=== PATIENT | male | born 1960 | race Caucasian/White ===

== ENCOUNTER 2023-06-22 03:34 | Emergency (ER) | payer OTHER, SELFPAY ==
[2023-06-22] VITALS (7 sets, daily range): BP systolic 146–157; BP diastolic 77–98; BMI 28.1
[2023-06-22 03:54] LABS: % Eosinophils 1.2 % (0-6); % Immature Granulocytes 0.5 % (0-0.5); % Lymphocytes 32.3 % (20.5-51.1); % Monocytes 7.7 % (1.7-9.3); % Neutrophils 57.3 % (42.2-75.2); Absolute Basophils 0.1 10^3/uL (0-0.2); Absolute Eosinophils 0.1 10^3/uL (0-0.7); Absolute Lymphocytes 1.9 10^3/uL (1.2-3.4); Absolute Monocytes 0.5 10^3/uL (0.1-0.6); Absolute Neutrophils 3.4 10^3/uL (1.4-6.5); Hematocrit 46.9 % (39.0-52.0); Mean Corp Hgb Conc. 34.1 g/dL (33.0-37.0); Mean Corpuscular Hgb 31.2 pg (27.0-31.0); Mean Corpuscular Volume 91.4 fL (80.0-94.0); Mean Platelet Volume 9.4 fL (7.4-10.4); Nucleated Red Blood Cells % 0 % (-); Platelet Count 180 10^3/uL (130-400); Red Blood Cell Count 5.13 10^6/uL (4.70-6.10); Red Cell Dist. Width 12.6 % (11.5-14.5); White Blood Cell Count 5.9 10^3/uL (4.8-10.8)
[2023-06-22 04:10] LABS: ALT (SGPT) 74 U/L (0-50); AST (SGOT) 37 U/L (17-59); Alkaline Phosphatase 68 U/L (38-126); Blood Urea Nitrogen 14 mg/dl (9-20); Calcium 9.7 mg/dl (8.4-10.2); Carbon Dioxide 20 mmol/L (22-30); Chloride 112 mmol/L (98-107); Estimated Creatinine Clearance 111 ml/min; Glucose 133 mg/dl (70-99); Potassium 4.1 mmol/L (3.5-5.1); Sodium 143 mmol/L (135-145); Total Bilirubin 0.4 mg/dl (0.2-1.3); Total Protein 8.2 g/dl (6.3-8.2); eGFR > 60.00
[2023-06-22 05:24] LABS: Troponin I < 0.012 ng/ml
--- NOTE | 2023-06-22 06:10 | EDRN ---
Updated patient on blood work and status on physician seeing him, patient remains feeling comfortable and symptom free
--- NOTE | 2023-06-22 06:30 | ED.GENMED ---
History of Present Illness
General
Chief Complaint: Dizziness
Source: patient and spouse
Exam Limitations: none
Time Seen by Provider: 06/22/23 06:04
Travel History
Have you had any contact with someone who has COVID-19?: No
Do you have any symptoms of coronavirus? Fever > 100 degrees, chills, cough, shortness of breath, sore throat, loss of taste or smell, muscle aches, or headache?: No
History of Present Illness
History of Present Illness:
this is a 63yo male who presents after he awoke to go to the bathroom and began to feel weak. Patient states he did have a few beers yesterday after going out to dinner. He then awoke to go to the bathroom and began to feel very weak and
lightheaded like he was going to pass out. He then became diaphoretic. He reports no associated vomiting. No associated chest pain. No associated palpitations. No associated shortness of breath. Patient states that he now feels much better.
Symptoms lasted about 15 minutes before he started to feel better. mentions that his blood pressure was a little low for him when the medics got there but he was already feeling better. Patient now offers no symptoms. He did mention to his
that he felt like he had to have a bowel movement at that time as well but did not.
Past History
Past History
ED Past Medical History: HTN and Hypercholesterolemia
ED Past Surgical History: Orthopedic
Social History
Tobacco: Former smoker
Alcohol: Occasional
Drug: None
Personal:
Living: with family
Employment: Employed
Phy Exam
Physical Exam
Physical Exam:
CONSTITUTIONAL Patient alert and oriented to person, place and time. Well-appearing. Vital signs reviewed.
HEAD atraumatic, normocephalic.
EYES eyelids normal to inspection, Extraocular muscles intact, Conjunctiva normal, Sclera normal.
NECK normal range of motion, Trachea midline, no jugular venous distention.
RESPIRATORY CHEST No respiratory distress noted, Chest expansion equal, Bilateral breath sounds clear.
CARDIOVASCULAR regular rate and rhythm, Heart sounds normal.
ABDOMEN abdomen nontender, Bowel sounds normal. No distention.
BACK normal inspection, no obvious deformities
UPPER EXTREMITY range of motion normal, Motor strength normal, no cyanosis, no edema.
LOWER EXTREMITY range of motion normal, Motor strength normal, no cyanosis, no edema.
NEURO Speech normal, No focal motor deficits, Sim coma scale 15, Memory normal, Cranial Nerves intact to screening exam.
SKIN skin warm, dry, and normal in color.
Course
Orders/Labs/Results
Orders:
Orders
06/22/23 03:36
Electrocardiogram (*1) Urgent
Reason for Study: Vertigo / Dizzy
Cardiac Monitoring- Treatment ONCE
06/22/23 03:37
EKG- Treatment ONCE
06/22/23 03:43
CMP [Comprehensive Metabolic Panel] Urgent
Complete Blood Count/With Diff Urgent
06/22/23 04:53
Troponin I Urgent
06/22/23 06:29
NSS 500mL Bolus over 30 minutes 0.9% Sodium Chloride 500 ml [Nss] 500 ml IV BOLUS
Abnormal Lab Results
06/22/23
03:43
MCH 31.2 H pg
(27.0-31.0)
Chloride 112 H mmol/L
(98-107)
Carbon Dioxide 20 L mmol/L
(22-30)
Glucose 133 H mg/dl
(70-99)
ALT 74 H U/L
(0-50)
06/22/23 03:43
06/22/23 03:43
Vital Signs
Initial and Last Documented VS:
Initial Vital Signs
Temp Pulse Resp BP Pulse Ox
98.5 F 86 16 157/98 96
06/22/23 03:38 06/22/23 03:38 06/22/23 03:38 06/22/23 03:38 06/22/23 03:38
Last Documented Vital Signs
Temp Pulse Resp BP Pulse Ox
98.5 F 99 14 157/88 94
06/22/23 03:38 06/22/23 06:00 06/22/23 06:00 06/22/23 06:00 06/22/23 06:00
MDM/Problems Addressed
MDM/Problems Addressed:
Near syncope, vasovagal event
Chronic conditions affecting care: HTN
*Pulse Oximetry
Patient hypoxic: no
*EKG
Interpreted by ED Provider?: Yes
Interpretation: normal
Rate: normal
Rhythm: sinus
[place]: normal axis
QRS Pattern: normal QRS
Ischemia: no ischemia
*[place] Interpretation
Rate: normal
Interpretation: normal
Rhythm: sinus
*Critical Care Note
Total Time (30-74mins, 75-104mins- exclusive of procedures): Not Applicable
Data Reviewed
Source: patient and spouse
Further Testing Considered But Not Given:
Consider D-dimer but no clinical concern or risk for PE
Patient Management
Escalation/DeEscalation of care consider admission/obs:
Patient appears well. Remains in normal sinus rhythm. Suspect vasovagal event. Had a few drinks yesterday and patient admits he was overheated in bed prior to this. Patient then had diaphoresis and lightheadedness without any other chest
symptoms. Counseled on reasons for return. Gentle IV fluids and discharge
ED Attending Note
-
Portions of this chart may have been created with voice recognition software.� Occasional wrong word or��sound alike� substitutions may have occurred due to the inherent limitations of voice recognition software.
Discharge Plan
Departure
Patient Disposition: Home (Routine Discharge)
Date of Disposition: 06/22/23
Time of Disposition: 06:33
Patient with high blood pressure during this ER visit?: Yes
Discharge Problem:
Near syncope, Vasovagal episode
Instructions: Vasovagal Response, Near Fainting (DC), BLOOD PRESSURE
Referrals:
David Hoffman MD [Family Provider] -
Activity Restrictions/Additional Instructions:
Please drink plenty of fluid. See your doctor next 3 days for follow-up and reevaluation. Return immediately for chest pain, shortness of breath, weakness of any kind or any other concerns.
Interventions
Interventions:
*Risk Screen - Suicide Last Done: 06/22/23 03:38
*General Assessment Last Done: 06/22/23 03:38
*Neglect/Abuse Screening Last Done: 06/22/23 03:38
ED- Fall Risk Assessment Last Done: 06/22/23 04:50
*ED COVID-19 Vaccine History Last Done: 06/22/23 03:38
ED- Neurological Assessment Last Done: 06/22/23 04:50
ED- Cardiac Assessment Last Done: 06/22/23 04:50
[2023-06-22] MEDS: NSS 500 IV (06:31)
--- NOTE | 2023-06-22 06:50 | EDRN ---
Patient ambulated to the restroom and back in bed resting comfortably, at bedside, aware he will go home after fluids are done
== END 2023-06-22 07:58 | disposition home or self-care (01) ==
LOC: EMR 03:34
PROVIDERS: Student in an Organized Health Care Education/Training Program; EMERGENCY PHYSICIAN Emergency Medicine; FAMILY PHYSICIAN Family Medicine
DX: R55 Syncope and collapse (principal); R61 Generalized hyperhidrosis; I10 Essential (primary) hypertension; E78.00 Pure hypercholesterolemia, unspecified; Z87.891 Personal history of nicotine dependence
CPT/HCPCS: 99284; 96360; 80053; 84484; 85025; 93005

== ENCOUNTER 2024-03-10 13:02 | Emergency (ER) | payer OTHER, SELFPAY ==
[2024-03-10 13:05] VITALS: BP 164/93
--- NOTE | 2024-03-10 13:08 | ED.GENMED ---
ED Provider Triage
<Jaime Schneider PA-C - Last Filed: 03/10/24 13:09>
-
Patient seen by provider in Triage?: Seen in Triage
64-year-old male otherwise healthy presents with onset of swelling and pain to the right calf yesterday worsening into today. He denies chest pain or shortness of breath. No fevers. 2 months ago he traveled to [facility].
Looks stable and nontoxic at triage. Concern for possible DVT. There is only unilateral swelling. Do not suspect heart failure. venous ultrasound ordered of the right lower extremity
Patient received medical screening assessment by healthcare provider through triage. He warrants further evaluation
History of Present Illness
<Jaime Schneider PA-C - Last Filed: 03/10/24 13:09>
General
Chief Complaint: DVT/Possible Blood Clot
Time Seen by Provider: 03/10/24 13:29
<Song Garcia DO - Last Filed: 03/10/24 15:10>
General
Source: patient
Exam Limitations: none
History of Present Illness
History of Present Illness:
See MDM
Past History
<EMILIE Lau Last Filed: 03/10/24 13:09>
Past History
ED Past Medical History: HTN and Hypercholesterolemia
ED Past Surgical History: Orthopedic
Social History
Tobacco: Former smoker
Alcohol: Occasional
Drug: None
Personal:
Living: with family
Employment: Employed
Phy Exam
<Song Garcia DO - Last Filed: 03/10/24 15:10>
Physical Exam
Physical Exam:
See MDM
Course
<EMILIE Lau Last Filed: 03/10/24 13:09>
Orders/Labs/Results
Orders:
Orders
03/10/24 13:07
Venous Doppler Lwr Ext Rt [US Periph Venous LOWER Ext RT] Urgent
Comment:
Reason For Exam: swelling, pain
03/10/24 14:54
Apixaban [Eliquis] 5 mg PO ONCE ONE
Vital Signs
Initial and Last Documented VS:
Initial Vital Signs
Temp Pulse Resp BP Pulse Ox
97.6 F 106 16 164/93 99
03/10/24 13:05 03/10/24 13:05 03/10/24 13:05 03/10/24 13:05 03/10/24 13:05
Last Documented Vital Signs
Temp Pulse Resp BP Pulse Ox
97.6 F 106 16 164/93 99
03/10/24 13:05 03/10/24 13:05 03/10/24 13:05 03/10/24 13:05 03/10/24 13:05
<Song Garcia, DO - Last Filed: 03/10/24 15:10>
Orders/Labs/Results
Orders:
Orders
03/10/24 13:07
Venous Doppler Lwr Ext Rt [US Periph Venous LOWER Ext RT] Urgent
Comment:
Reason For Exam: swelling, pain
03/10/24 14:54
Apixaban [Eliquis] 5 mg PO ONCE ONE
Vital Signs
Initial and Last Documented VS:
Initial Vital Signs
Temp Pulse Resp BP Pulse Ox
97.6 F 106 16 164/93 99
03/10/24 13:05 03/10/24 13:05 03/10/24 13:05 03/10/24 13:05 03/10/24 13:05
Last Documented Vital Signs
Temp Pulse Resp BP Pulse Ox
97.6 F 106 16 164/93 99
03/10/24 13:05 03/10/24 13:05 03/10/24 13:05 03/10/24 13:05 03/10/24 13:05
<Song Garcia, DO - Last Filed: 03/10/24 15:10>
MDM/Problems Addressed
Differential Diagnosis Includes:
HPI and MDM Narrative:
64-year-old male presenting with right calf pain and swelling. Patient did have anterior knee pain and then he noted a pain in the back of his knee since this morning. Since then, he feels like there is swelling and pain going down his calf. He
denies numbness or tingling. On exam, he is very well-appearing nontoxic. We discussed DVT versus muscle strain versus ruptured Moran's cyst. Will obtain ultra sound
Physical exam
General: Well appearing and non-toxic
HEENT: protecting airway
Neck: appears supple
CV: No evidence of cyanosis
Resp: No accessory muscle use
Abd: Non-distended
Extremities: Mild swelling and tenderness to right popliteal fossa and medial calf. Distal extremity neurovascular intact. No skin changes
Neuro: alert
Psych: Normal affect
Skin: Intact
Problems Addressed including Acute and Chronic Conditions affecting care:
1. Right calf pain
Acuity: acute
Prognosis: stable
Details: Will obtain ultrasound to rule out DVT versus Moran's cyst
Updates
Patient found to have a DVT. Upon further questioning, he did have a recent plane ride to [facility]. Patient started on Eliquis and discussed return precautions and avoidance of NSAIDs. He has PCP follow-up next week
Differential Diagnosis (but not limited to): DVT, muscle strain, ruptured Moran's cyst
Testing considered: knee x-ray but no bony tenderness noted
Drug therapy (if applicable): OTC meds, please see d/c instruction regarding Rx drugs
Amount and/or Complexity of Data Reviewed
Clinical info obtained from: Patient
External data reviewed: N/A
Labs I independently reviewed (but not limited to): N/A
Radiology: Ultrasound report reviewed
Pulse Ox: not hypoxic
EKG independently reviewed: N/A
Supervisor Brake Repair: N/A
Critical Care: N/A
Risk of Complication:
Social Determinants of health: Good social support
Discussed with other providers: N/A
Escalation of Care includes Admit/Obs: After being observed in the Emergency Department, pt stable for discharge.
Occasional wrong word or 'sound a like' substitutions may have occurred due to the inherent limitations of voice recognition software. Read the chart carefully and recognize, using context, where substitutions have occurred.
<Song Garcia DO - Last Filed: 03/10/24 15:10>
*Critical Care Note
Total Time (30-74mins, 75-104mins- exclusive of procedures): Not Applicable
ED Attending Note
<Jaime Schneider PA-C - Last Filed: 03/10/24 13:09>
-
Portions of this chart may have been created with voice recognition software.� Occasional wrong word or��sound alike� substitutions may have occurred due to the inherent limitations of voice recognition software.
Discharge Plan
Departure
Patient Disposition: Home (Routine Discharge)
Date of Disposition: 03/10/24
Time of Disposition: 15:09
Patient with high blood pressure during this ER visit?: No
Discharge Problem:
DVT of lower limb, acute
Instructions: Deep Vein Thrombosis (Blood Clots in the Legs) (DC)
Prescriptions:
New
Eliquis 5 mg tablet
5 mg PO BID Qty: 60 0RF
Activity Restrictions/Additional Instructions:
Please return for any worsening symptoms.
You may return at any time if you have further concerns.
Please keep your primary care appointment next week.
Thank you for choosing [facility].
Interventions
Interventions:
*Risk Screen - Suicide Last Done: 03/10/24 13:05
*General Assessment Last Done: 03/10/24 13:05
*Neglect/Abuse Screening Last Done: 03/10/24 14:01
*ED COVID-19 Vaccine History Last Done: 03/10/24 13:05
ED- Cardiac Assessment Last Done: 03/10/24 14:01
ED- Pulmonary Assessment Last Done: 03/10/24 14:01
ED-Peripheral Vascular Assessment Last Done: 03/10/24 14:01
ED-Skin Assessment Last Done: 03/10/24 14:01
Discharge Date and Time
Print Language: [id number]
[2024-03-10] MEDS: ELIQUIS 5 MG PO (15:13)
== END 2024-03-10 15:19 | disposition home or self-care (01) ==
LOC: EMR 13:02
PROVIDERS: EMERGENCY PHYSICIAN Student in an Organized Health Care Education/Training Program; FAMILY PHYSICIAN Family Medicine
DX: I82.411 Acute embolism and thrombosis of right femoral vein (principal); I82.451 Acute embolism and thrombosis of right peroneal vein; I82.441 Acute embolism and thrombosis of right tibial vein; I10 Essential (primary) hypertension; E78.00 Pure hypercholesterolemia, unspecified; Z87.891 Personal history of nicotine dependence
CPT/HCPCS: 99284; 93971

== ENCOUNTER → 2024-06-29 06:36 | Outpatient (REF) | payer OTHER, SELFPAY | LOC: RAD 06:36 | PROVIDERS: ATTENDING PHYSICIAN Family Medicine; REFERRING PHYSICIAN Internal Medicine Hematology & Oncology | DX: I82.401 Acute embolism and thrombosis of unspecified deep veins of right lower extremity (principal) | CPT/HCPCS: 93971 ==

== ENCOUNTER → 2024-08-02 06:37 | Outpatient (REF) | payer OTHER, SELFPAY | LOC: RAD 06:37 | PROVIDERS: ATTENDING PHYSICIAN Family Medicine | DX: R00.2 Palpitations (principal); R05.1 Acute cough | CPT/HCPCS: 71046 ==

== ENCOUNTER → 2024-09-02 08:29 | Outpatient (REF) | payer OTHER, SELFPAY | LOC: RAD 08:29 | PROVIDERS: ATTENDING PHYSICIAN Family Medicine | DX: R13.10 Dysphagia, unspecified (principal) | CPT/HCPCS: 74230; 92611 ==

== ENCOUNTER → 2024-10-05 06:49 | Outpatient (REF) | payer OTHER, SELFPAY | LOC: RAD 06:49 | PROVIDERS: ATTENDING PHYSICIAN Internal Medicine Hematology & Oncology; FAMILY PHYSICIAN Family Medicine | DX: I82.491 Acute embolism and thrombosis of other specified deep vein of right lower extremity (principal); D68.51 Activated protein C resistance | CPT/HCPCS: 93971 ==

== ENCOUNTER → 2024-10-29 07:28 | Outpatient (REF) | payer OTHER, SELFPAY | LOC: RAD 07:28 | PROVIDERS: ATTENDING PHYSICIAN Internal Medicine Hematology & Oncology; FAMILY PHYSICIAN Family Medicine | DX: I82.491 Acute embolism and thrombosis of other specified deep vein of right lower extremity (principal); D68.51 Activated protein C resistance; I26.99 Other pulmonary embolism without acute cor pulmonale | CPT/HCPCS: 71275; 74177; Q9967 ==

== ENCOUNTER → 2025-01-13 09:13 | Outpatient (REF) | payer OTHER, SELFPAY | LOC: RCS 09:13 | PROVIDERS: ATTENDING PHYSICIAN Internal Medicine Cardiovascular Disease; FAMILY PHYSICIAN Family Medicine | DX: R07.9 Chest pain, unspecified (principal); R00.2 Palpitations; I49.3 Ventricular premature depolarization; I26.99 Other pulmonary embolism without acute cor pulmonale | CPT/HCPCS: 93306 ==

== ENCOUNTER → 2025-01-25 08:59 | Outpatient (REF) | payer OTHER, SELFPAY | LOC: RCS 08:59 | PROVIDERS: ATTENDING PHYSICIAN Internal Medicine Cardiovascular Disease; FAMILY PHYSICIAN Family Medicine | DX: R07.89 Other chest pain (principal); R00.2 Palpitations; I49.3 Ventricular premature depolarization; I26.99 Other pulmonary embolism without acute cor pulmonale; R07.9 Chest pain, unspecified | CPT/HCPCS: 93017; 93350; Q9957 ==

== ENCOUNTER → 2025-02-04 06:46 | Outpatient (REF) | payer OTHER, SELFPAY | LOC: RAD 06:46 | PROVIDERS: ATTENDING PHYSICIAN Internal Medicine Hematology & Oncology; FAMILY PHYSICIAN Family Medicine | DX: I82.491 Acute embolism and thrombosis of other specified deep vein of right lower extremity (principal); I26.99 Other pulmonary embolism without acute cor pulmonale; D68.51 Activated protein C resistance | CPT/HCPCS: 93971 ==